=== PATIENT | male | born 1990 | race Hispanic/Latino ===

== ENCOUNTER 2016-09-19 19:55 | Emergency (ER) | payer SELFPAY ==
[~2016-09-19] VITALS: Ht 160 cm; Wt 63.6 kg
[2016-09-19 20:03] VITALS: BP 126/73; PULSE 112; RESP 18; O2SAT 97
[2016-09-19 20:31] LABS: BASOPHILS % (AUTO) 0.2 % (0-3); EOSINOPHILS % (AUTO) 0.9 % (0-5); MONOCYTES % (AUTO) 10.1 % (4-12); Mean Corpuscular Hemoglobin 30.6 pg (27.0-35.0); Mean Corpuscular Volume 89.7 fL (81-100); NEUTROPHILS % (AUTO) 80.3 % (40-74); Platelet Count 136 bil/L (150-400)
[2016-09-19 20:55] LABS: Magnesium 2.2 mg/dL (1.6-2.6)
--- NOTE | 2016-09-19 21:26 | ED.REPORT ---
HPI-URI / Cough / Cold Date of Service Sep 19, 2016 ED Provider: Dinh Thomson MD A 25 year old male with a history of smoking and marijuana use presents to the ED complaining of nausea, vomiting, and diarrhea. This is accompanied by fever, chills, and abdominal pain. These symptoms began three days ago. The pt denies hematemesis or hematochezia, as well as any exposure to people with similar symptoms. Nursing Notes Stated Complaint: ABDOMINAL PAIN, VOMITING, HEADACHE Chief Complaint: Male Abdominal Pain Nursing Notes Reviewed: Yes Allergies: Coded Allergies: No Known Allergies (Unverified Allergy, Unknown, 09/19/16) Scheduled PRN oxyCODONE-Acetaminophen 5-325 mg (oxyCODONE-Acetaminophen 5-325 mg) 1 Each Tablet 1-2 TAB PO Q6H PRN PRN For Pain General Time Seen by MD: 21:07 Chief Complaint Other (N/V/D) Hx Obtained From: Patient Arrived By: Walk-in Onset Occurred: 3 days ago Symptom Duration: Since onset Recent Healthcare: No recent doctor visit, No recent hospitalization Similar Sx Previous: No Past Medical History Past Medical History none reported Past Surgical History none reported Smoking History Current Every Day Smoker Social History Alcohol Use: "Social" Drug Use: THC Other Social History: Good social support Ambulatory Status Independent Review of Systems Constitutional: Reports: Chills, Fever Respiratory: Denies: Non-productive cough, Shortness of breath GI: Reports: Abdominal pain, Diarrhea, Nausea, Vomiting, Denies: Hematemesis, Hematochezia Skin: Denies Rash Complete sys rev & neg: except as marked. Physical Exam Initial Vital Signs Vital Signs (First) Date Time Temp Pulse Resp B/P Pulse Ox O2 Delivery O2 Flow Rate FiO2 09/19/16 20:03 37.0 112 18 126/73 97 Room Air Initial VS: Reviewed, Vital signs abnormal General/Constitutional: Awake, Alert ENT: Atraumatic, Airway patent Mouth: Positive: Mucous membranes dry Respiratory / Chest: Atraumatic, Breath sounds NL, Breath sounds = bilat, No respiratory distress Head / Eyes: Atraumatic, Normocephalic, PERRL, EOMI Neck: Atraumatic, Supple, Full range of motion Cardiovascular: Heart rate NL, Regular rhythm, Heart sounds NL Abdomen: Atraumatic, Soft diffuse tenderness, more pronounced in the epigastrium Skin: Atraumatic, No rash, Warm, Dry slightly pale Neurologic: Oriented X3, Speech NL, No motor deficits, No sensory deficits Back: Atraumatic, Full range of motion, No CVA tenderness Upper Extremity / MS: Atraumatic, Full range of motion Lower Extremity / Pelvis / MS: Atraumatic, Full range of motion Psychiatric: Affect NL, Mood NL Interpretation & Diagnostics Lab Results Interpretation Result Diagram: 09/19/16202009/19/162020 Test 09/19/16 20:21 09/20/16 01:16 White Blood Count 10.4th/mm3 (3.8-10.1) Red Blood Count 5.26mil/mm3 (4.40-5.80) Hemoglobin 16.1g/dL (13.8-17.2) Hematocrit 47.2% (41.0-50.0) Mean Corpuscular Volume 89.7fL (81-100) Mean Corpuscular Hemoglobin 30.6pg (27.0-35.0) Mean Corpuscular Hemoglobin Concent 34.1% (32.0-37.0) Red Cell Distribution Width 12.7% (12.3-15.4) Platelet Count 136bil/L (150-400) Neutrophils (%) (Auto) 80.3% (40-74) Lymphocytes (%) (Auto) 8.1% (14-46) Monocytes (%) (Auto) 10.1% (4-12) Eosinophils (%) (Auto) 0.9% (0-5) Basophils (%) (Auto) 0.2% (0-3) Sodium Level 139mEq/L (134-144) Potassium Level 3.9mEq/L (3.5-5.2) Chloride Level 100mEq/L (97-108) Carbon Dioxide Level 23mmol/L (18-29) Blood Urea Nitrogen 6mg/dL (6-20) Creatinine 0.69mg/dL (0.76-1.27) Estimat Glomerular Filtration Rate 151mL/min (>59) Glucose Level 101mg/dL (60-99) Calcium Level 8.9mg/dL (8.5-10.1) Magnesium Level 2.2mg/dL (1.6-2.6) Total Bilirubin 0.8mg/dL (0.0-1.2) Aspartate Amino Transf (AST/SGOT) 30U/L (0-50) Alanine Aminotransferase (ALT/SGPT) 28U/L (0-44) Alkaline Phosphatase 58U/L (25-150) Total Protein 7.5g/dL (6.4-8.4) Albumin 4.6g/dL (3.4-5.0) Lipase 24U/L (13-60) Hold [place] Top Tube Received (Received) Urine Color Straw (YELLOW) Urine Appearance Clear (CLEAR,HAZY) Urine pH 6.0 (5.0-8.0) Urine Specific [place] <1.005 (1.003-1.035) Urine Protein Negativemg/dL (NEG,TRACE) Urine Glucose (UA) Negativemg/dL (NEGATIVE) Urine Ketones Negativemg/dL (NEGATIVE) Urine Occult Blood Moderate (NEGATIVE) Urine Nitrite Negative (NEGATIVE) Urine Bilirubin Negative (NEGATIVE) Urine Urobilinogen Normalmg/dL (NORMAL) Urine Leukocyte Esterase Negative (NEGATIVE) Urine RBC 0-2/hpf (0-2) Urine WBC 0-5/hpf (0-5) Urine Epithelial Cells Occasional/hpf (NONE-MOD) Urine Crystals None seen (NONE SEEN) Urine Bacteria None/hpf (NONE-FEW) Urine Hyaline Casts None/lpf (NONE) Urine Granular Casts None seen (NONE SEEN) Urine Waxy Casts None seen (NONE SEEN) Urine Red Blood Cell Casts None seen (NONE SEEN) Urine White Blood Cell Casts None seen (NONE SEEN) Urine Mucus None seen (None Seen) Urine Trichomonas None seen (NONE SEEN) Urine Yeast None (NONE SEEN) Urinalysis Comment None Urine Culture Reflexed Not indicated Hold Urine Received (Received) Lab values outside NL range: no clinical significance. Re-Eval/Medical Decision Med Decision/Clinical Course Vomiting with abdominal pain of uncertain etiology. He likely has a viral gastroenteritis. There does not appear to be serious or surgical disease present. He was given 2 L of saline and Zofran with good relief of his nausea. He will be discharged home with a prescription for 6 oxycodone/APAP. Follow up with his primary provider as needed for persistent symptoms. Source of Hx: Old records Re-Evaluation/Progress #1: Time of Eval: 23:39 Patient Status: Condition improved Re-Evaluation/Progress Note: Pt rechecked, who is resting. Further treatment is discussed. Re-Evaluation/Progress #2: Time of Eval: 01:04 Re-Evaluation/Progress Note: Pt rechecked, who is resting. Need for urine is discussed. Re-Evaluation/Progress #3: Time of Eval: 02:23 Patient Status: Condition improved Re-Evaluation/Progress Note: Pt rechecked, who is resting comfortably. The plan for discharge is discussed. The pt understands and agrees with the plan. All questions are addressed at this time. Counseled Regarding: Diagnosis, Lab results, Need for follow-up, When/why to return to ED Discharge & Departure Impression: Primary Impression: Vomiting Vomiting type: unspecified Vomiting Intractability: non-intractable Nausea presence: with nausea Qualified Code: R11.2 - Nausea with vomiting, unspecified Disposition: Home Discharge Condition All VS Reviewed: Yes Condition: Stable Patient Instructions: Gastroenteritis (ED) Additional Instructions: Your vomiting is likely due to a viral gastroenteritis. This could be food borne or acquired from someone in the community. No specific treatment is available. Ondansetron 4 mg ODT, 1 dissolved orally 4 times a day as needed for nausea and vomiting, #4 dispensed. Oxycodone/acetaminophen 5/325, one or 2 every 4-6 hours as needed for severe pain, #6 prescription written. Small amounts of clear liquids frequently. This does not seem to be from a serious or surgical illness like appendicitis, but you will need to follow-up if you persistent symptoms. Call me at [phone] between the hours of 9 PM and 6 AM if you have any questions or concerns. Referrals: [facility] Jorge Attestation Portions of this note were transcribed by Ana Lemons. I, Dr. Thomson personally performed the history, physical exam and medical decision-making; I reviewed and confirmed the accuracy of the information in the transcribed note. Signed by: Jorge Choudhary, 09/20/2016 and 0235. copies to: [facility] Dinh Thomson MD Sep 19, 2016 21:26 ANA LEMONS Sep 19, 2016 21:36
[2016-09-19] MEDS ORDERED: Pantoprazole 4 mg/mL 10 mL Inj IVPUSH ONE (21:35)
[2016-09-19] MEDS ORDERED: 0.9% Sodium Chloride 1,000 ML IV ONE ×2 (21:35→23:40)
[2016-09-19] MEDS: Ondansetron 2 mg/mL 2 mL Inj IVPUSH PRN ×2 (21:43→23:51)
[2016-09-19 22:15] VITALS: BP 116/58; PULSE 81; RESP 16; O2SAT 96
[2016-09-19 23:27] VITALS: BP 99/51; PULSE 88; RESP 16; O2SAT 96
[2016-09-19] MEDS ORDERED: HYDROmorphone 0.5 mg/0.5 mL iSecure Syringe IVPUSH ONE (23:40)
[2016-09-19] MEDS ORDERED: HYDROmorphone 1 mg/mL Inj IVPUSH ONE (23:50)
[2016-09-20 01:40] LABS: APPEARANCE,URINE CLEAR (CLEAR,HAZY); COLOR,URINE STRAW (YELLOW); OCCULT BLOOD,URINE MODERATE (NEGATIVE); UROBILINOGEN,URINE NORMAL (NORMAL)
[2016-09-20] MEDS ORDERED: _Ondansetron ODT 4 mg Tablet PO PRN (02:15)
[2016-09-20] MEDS ORDERED: oxyCODONE-Acetamin 5-325 mg Tablet PO ONE (03:00)
[2016-09-20] MEDS ORDERED: OXYC1TAB24 PO (03:01)
[2016-09-20 03:04] VITALS: BP 108/58; PULSE 66; RESP 16; O2SAT 100
== END 2016-09-20 03:01 | disposition home or self-care (01) ==
LOC: SED 19:55
DX: R11.2 Nausea with vomiting, unspecified (principal); R19.7 Diarrhea, unspecified; R50.9 Fever, unspecified; R10.13 Epigastric pain; F17.200 Nicotine dependence, unspecified, uncomplicated
CPT/HCPCS: 36415; 80053; 81000; 83690; 83735; 85025; 87804; 96361; 96374; 96375; 96376; 99285; J1170; J2405; J7030